=== PATIENT | female | born 1940 | race Caucasian/White ===

== ENCOUNTER 2017-09-14 14:35 | Day surgery (SDC) | payer MEDICARE, OTHER ==
[2017-09-14] MEDS ORDERED: POLYMYXIN/BACITRACIN 1L IRRIG (17:55)
[2017-09-14] MEDS ORDERED: MIDAZOLAM 1 MG/ML 2 ML INJ (18:15)
[2017-09-14] MEDS ORDERED: FENTAnyl 50 MCG/ML VIAL (18:15)
[2017-09-14] MEDS ORDERED: ONDANSETRON 4 MG INJ (18:54)
[2017-09-14] MEDS ORDERED: CEFAZOLIN 1 GM INJ (18:54)
[2017-09-14] MEDS: OXYCODONE/ACETAMINOPHEN (5/325) TAB PO (19:35)
== END 2017-09-14 20:20 | disposition home or self-care (01) ==
LOC: SDS 14:35
DX: I70.262 Atherosclerosis of native arteries of extremities with gangrene, left leg (principal); E78.5 Hyperlipidemia, unspecified; I10 Essential (primary) hypertension; J44.9 Chronic obstructive pulmonary disease, unspecified
CPT/HCPCS: 11043; 93005

== ENCOUNTER 2017-09-28 14:44 | Day surgery (SDC) | payer MEDICARE, OTHER ==
[~2017-09-28 14:44] MED LIST: CEFAZOLIN 1 GM INJ
[2017-09-28 16:08] LABS: ADD MAN DIFF? NO
[2017-09-28 16:11] LABS: BASOPHIL # 0.1 10^3/ul (0.0-0.1); BASOPHILS % 1.1 % (0.0-2.0); EOSINOPHILS # 0.2 10^3/ul (0.0-0.5); EOSINOPHILS % 4.9 % (0.0-7.0); HEMATOCRIT 29.7 % (37.0-47.0); HEMOGLOBIN 8.9 g/dl (12.0-16.0); LYMPHOCYTES # 1.1 10^3/ul (0.8-2.9); LYMPHOCYTES % 25.3 % (15.0-51.0); MEAN CORPUSCULAR VOLUME 86.8 fl (82.0-101.0); MEAN PLATELET VOLUME 9.7 fl (7.4-10.4); MONOCYTE # 0.5 10^3/ul (0.3-0.9); NEUTROPHIL # 2.6 10^3/ul (1.6-7.5); NEUTROPHILS % 58.3 % (39.0-77.0); PLATELET COUNT 306 10^3/UL (140-415); RED BLOOD COUNT 3.42 10^6/ul (4.20-5.40); RED CELL DISTRIBUTION WIDTH 18.4 % (11.5-14.5)
[2017-09-28 16:11] LABS: WHITE BLOOD COUNT 4.5 10^3/ul (4.8-10.8)
[2017-09-28 16:19] LABS: HOLD TRANSMISSIONS 1
[2017-09-28 16:27] LABS: ANION GAP 11 (8-16); CARBON DIOXIDE 27 mmol/L (21-31); CHLORIDE 110 mmol/L (97-110); GLUCOSE 73 mg/dl (70-220)
[2017-09-28] MEDS ORDERED: FENTAnyl 50 MCG/ML VIAL (16:29)
[2017-09-28] MEDS ORDERED: MIDAZOLAM 1 MG/ML 2 ML INJ (16:29)
[2017-09-28 16:30] LABS: BLOOD UREA NITROGEN 20 mg/dl (7-20); CALCIUM 8.6 mg/dl (8.4-10.2); CREATININE 0.79 mg/dl (0.44-1.00); POTASSIUM 4.5 mmol/L (3.5-5.1); SODIUM 143 mmol/L (135-144)
[2017-09-28 16:43] LABS: INR 1.21; PROTIME 15.5 Sec (11.9-14.9); PT RATIO 1.2
[2017-09-28 16:44] LABS: PARTIAL THROMBOPLASTIN TIME 32.8 Sec (25.0-35.0)
[2017-09-28] MEDS: FENTAnyl 50 MCG/ML VIAL IV ×2 (17:22→17:30)
[2017-09-28] MEDS ORDERED: EPHEDrine SULFATE 50 MG/5 ML SYG IV (17:30)
[2017-09-28] MEDS ORDERED: LABETALOL HCL 20MG INJ IV (17:30)
[2017-09-28] MEDS ORDERED: hydrALAzine 20 MG INJ IV (17:30)
[2017-09-28] MEDS ORDERED: ONDANSETRON 4 MG INJ IV (17:30)
[2017-09-28] MEDS ORDERED: MIDAZOLAM 1 MG/ML 2 ML INJ IV (17:30)
[2017-09-28] MEDS ORDERED: OXYCODONE/ACETAMINOPHEN (5/325) TAB PO ×2 (17:30)
[2017-09-28] MEDS ORDERED: FENTAnyl 50 MCG/ML VIAL IV (17:30)
[2017-09-28] MEDS ORDERED: DIPHENHYDRAMINE 50 MG INJ IV (17:30)
[2017-09-28] MEDS: KETOROLAC 30 MG INJ IV (17:34)
== END 2017-09-28 18:34 | disposition home or self-care (01) ==
LOC: SDS 14:44
DX: I70.248 Atherosclerosis of native arteries of left leg with ulceration of other part of lower leg (principal); L97.825 Non-pressure chronic ulcer of other part of left lower leg with muscle involvement without evidence of necrosis; I10 Essential (primary) hypertension; I25.10 Atherosclerotic heart disease of native coronary artery without angina pectoris
CPT/HCPCS: 11043; 71045; 80048; 85025; 85610; 85730

== ENCOUNTER 2017-10-23 06:13 | Day surgery (SDC) | payer MEDICARE, OTHER ==
[2017-10-23 06:49] LABS: ADD MAN DIFF? NO
[2017-10-23 06:55] LABS: BASOPHIL # 0.1 10^3/ul (0.0-0.1); BASOPHILS % 0.9 % (0.0-2.0); EOSINOPHILS # 0.3 10^3/ul (0.0-0.5); EOSINOPHILS % 4.4 % (0.0-7.0); HEMATOCRIT 32.2 % (37.0-47.0); HEMOGLOBIN 9.5 g/dl (12.0-16.0); LYMPHOCYTES # 0.9 10^3/ul (0.8-2.9); LYMPHOCYTES % 12.9 % (15.0-51.0); MEAN CORPUSCULAR HEMOGLOBIN 25.6 pg (29.0-33.0); MEAN CORPUSCULAR HGB CONC 29.5 g/dl (32.0-37.0); MEAN CORPUSCULAR VOLUME 86.8 fl (82.0-101.0); MEAN PLATELET VOLUME 9.3 fl (7.4-10.4); MONOCYTE # 0.6 10^3/ul (0.3-0.9); MONOCYTES % 9.1 % (0.0-11.0); NEUTROPHIL # 5.1 10^3/ul (1.6-7.5); NEUTROPHILS % 71.6 % (39.0-77.0); PLATELET COUNT 418 10^3/UL (140-415); RED BLOOD COUNT 3.71 10^6/ul (4.20-5.40); RED CELL DISTRIBUTION WIDTH 16.7 % (11.5-14.5)
[2017-10-23 06:55] LABS: WHITE BLOOD COUNT 7.1 10^3/ul (4.8-10.8)
[2017-10-23] MEDS ORDERED: NALOXONE (0.4 MG/ML) INJ (07:00)
[2017-10-23] MEDS ORDERED: CEFAZOLIN 1 GM INJ (07:00)
[2017-10-23] MEDS ORDERED: ROCURONIUM 50 MG INJ (07:00)
[2017-10-23] MEDS ORDERED: LIDOCAINE 2% (SDV) 5 ML INJ (07:00)
[2017-10-23] MEDS ORDERED: PROPOFOL 200 MG INJ (07:00)
[2017-10-23 07:08] LABS: ANION GAP 11 (8-16); CARBON DIOXIDE 26 mmol/L (21-31); CHLORIDE 108 mmol/L (97-110); GLUCOSE 101 mg/dl (70-220)
[2017-10-23 07:10] LABS: BLOOD UREA NITROGEN 26 mg/dl (7-20); CALCIUM 9.1 mg/dl (8.4-10.2); CREATININE 1.08 mg/dl (0.44-1.00); POTASSIUM 3.8 mmol/L (3.5-5.1); SODIUM 141 mmol/L (135-144)
[2017-10-23 07:21] LABS: HOLD TRANSMISSIONS 1
[2017-10-23] MEDS ORDERED: MINERAL OIL LIGHT 10 ML VIAL (07:23)
[2017-10-23] MEDS ORDERED: THROMBIN 5000 UNIT VIAL (07:24)
[2017-10-23] MEDS ORDERED: GELATIN SIZE 100 SPONGE (07:24)
[2017-10-23] MEDS ORDERED: MIDAZOLAM 1 MG/ML 2 ML INJ (07:42)
[2017-10-23] MEDS ORDERED: FENTAnyl 50 MCG/ML VIAL (07:44)
[2017-10-23] MEDS ORDERED: SUGAMMADEX SODIUM 200 MG/2 ML VIAL IV (08:01)
[2017-10-23 08:09] LABS: INR 1.22; PROTIME 15.6 Sec (11.9-14.9); PT RATIO 1.2
[2017-10-23 08:21] LABS: PARTIAL THROMBOPLASTIN TIME 41.5 Sec (25.0-35.0)
[2017-10-23] MEDS ORDERED: DIPHENHYDRAMINE 50 MG INJ (08:23)
[2017-10-23] MEDS: LIDOCAINE 1% (MPF) 30 ML INJ (08:52)
[2017-10-23] MEDS ORDERED: METOCLOPRAMIDE 10 MG INJ IV (09:00)
[2017-10-23] MEDS ORDERED: HYDROmorphONE 1 MG/5 ML IV SYRINGE IV (09:00)
[2017-10-23] MEDS ORDERED: LABETALOL HCL 20MG INJ IV (09:00)
[2017-10-23] MEDS: ONDANSETRON 4 MG INJ IV (09:02)
[2017-10-23] MEDS: HYDROmorphONE 1 MG/5 ML IV SYRINGE IV (09:02)
== END 2017-10-23 10:40 | disposition home or self-care (01) ==
LOC: SDS 06:13
DX: I70.248 Atherosclerosis of native arteries of left leg with ulceration of other part of lower leg (principal); L97.829 Non-pressure chronic ulcer of other part of left lower leg with unspecified severity; E78.5 Hyperlipidemia, unspecified; I10 Essential (primary) hypertension
CPT/HCPCS: 11042; 80048; 85025; 85610; 85730

== ENCOUNTER 2017-11-06 06:50 | Day surgery (SDC) | payer MEDICARE, OTHER ==
[2017-11-06] MEDS ORDERED: FENTAnyl 50 MCG/ML VIAL (09:00)
[2017-11-06] MEDS ORDERED: MIDAZOLAM 1 MG/ML 2 ML INJ (09:00)
[2017-11-06] MEDS: LIDOCAINE 1% (MPF) 30 ML INJ (09:19)
[2017-11-06] MEDS: POLYMYXIN/BACITRACIN 1L IRRIG (09:19)
[2017-11-06] MEDS ORDERED: CEFAZOLIN 1 GM INJ (09:27)
[2017-11-06] MEDS: OXYCODONE/ACETAMINOPHEN (5/325) TAB PO ×2 (09:51→09:58)
[2017-11-06] MEDS ORDERED: OXYCODONE/ACETAMINOPHEN (5/325) TAB PO (10:00)
[2017-11-06] MEDS ORDERED: ONDANSETRON 4 MG INJ IV (10:00)
== END 2017-11-06 10:46 | disposition home or self-care (01) ==
LOC: SDS 06:50
DX: I70.248 Atherosclerosis of native arteries of left leg with ulceration of other part of lower leg (principal); L97.829 Non-pressure chronic ulcer of other part of left lower leg with unspecified severity; I10 Essential (primary) hypertension; E78.5 Hyperlipidemia, unspecified
CPT/HCPCS: 11042

== ENCOUNTER 2017-11-20 07:02 | Day surgery (SDC) | payer MEDICARE, OTHER ==
[2017-11-20] MEDS ORDERED: MIDAZOLAM 1 MG/ML 2 ML INJ (08:49)
[2017-11-20] MEDS ORDERED: FENTAnyl 50 MCG/ML VIAL ×2 (08:49→09:06)
[2017-11-20] MEDS ORDERED: CEFAZOLIN 1 GM INJ (09:27)
[2017-11-20] MEDS ORDERED: OXYCODONE/ACETAMINOPHEN (5/325) TAB (10:08)
[2017-11-20] MEDS: OXYCODONE/ACETAMINOPHEN (5/325) TAB PO (10:10)
[2017-11-20] MEDS: POLYMYXIN/BACITRACIN 1L IRRIG (12:29)
== END 2017-11-20 11:03 | disposition home or self-care (01) ==
LOC: SDS 07:02
DX: I70.248 Atherosclerosis of native arteries of left leg with ulceration of other part of lower leg (principal); L97.825 Non-pressure chronic ulcer of other part of left lower leg with muscle involvement without evidence of necrosis; Z89.611 Acquired absence of right leg above knee; I10 Essential (primary) hypertension; J44.9 Chronic obstructive pulmonary disease, unspecified
CPT/HCPCS: 11043

== ENCOUNTER 2017-12-11 07:47 | Day surgery (SDC) | payer MEDICARE, OTHER ==
[2017-12-11] MEDS ORDERED: MIDAZOLAM 1 MG/ML 2 ML INJ (10:21)
[2017-12-11] MEDS ORDERED: FENTAnyl 50 MCG/ML VIAL (10:21)
[2017-12-11] MEDS ORDERED: CEFAZOLIN 1 GM INJ (10:50)
[2017-12-11] MEDS: HYDROmorphONE 1 MG/5 ML IV SYRINGE IV (11:20)
[2017-12-11] MEDS ORDERED: hydrALAzine 20 MG INJ IV (11:30)
[2017-12-11] MEDS ORDERED: ONDANSETRON 4 MG INJ IV (11:30)
[2017-12-11] MEDS ORDERED: HYDROmorphONE 1 MG/5 ML IV SYRINGE IV (11:30)
[2017-12-11] MEDS ORDERED: DIPHENHYDRAMINE 50 MG INJ IV (11:30)
[2017-12-11] MEDS ORDERED: FENTAnyl 50 MCG/ML VIAL IV (11:30)
== END 2017-12-11 12:18 | disposition home or self-care (01) ==
LOC: SDS 07:47
DX: I70.248 Atherosclerosis of native arteries of left leg with ulceration of other part of lower leg (principal); L97.829 Non-pressure chronic ulcer of other part of left lower leg with unspecified severity; I10 Essential (primary) hypertension; E11.9 Type 2 diabetes mellitus without complications; E78.5 Hyperlipidemia, unspecified
CPT/HCPCS: 11042